=== PATIENT | female | born 1980 | race Caucasian/White ===

== ENCOUNTER 2018-09-29 22:58 | Inpatient (IN) ==
[2018-09-29] MEDS ORDERED: LACTATED RINGER'S 1,000 ML IV PRN (23:15)
[2018-09-29] MEDS ORDERED: OXYTOCIN 30 UNITS/500 ML BAG IV PRN (23:15)
--- NOTE | 2018-09-29 23:21 | History & Physical Report ---
Date of Service September 29, 2018 Assessment & Plan (1) Uterine contractions at greater than 20 weeks of gestation: 38 yo at 40.2 wks presenting in active labor VSS Afebrile GBS negative FHR reassuring Plan admit monitor epidural for pain, anticipate History of Present Illness Chief Complaint: Contractions Primary Care Provider: NO PCP Patient is a 38 yo at 40.2 wks with EDC of 3/10 per1St trimester US She started tohave ctxs at 2030 and became regular and painful Every 2min No LOF/VB +FM Her has been uncomplicated She is transfer of care from [facility] Per her no problems noted GBS negative Allergies Allergy/AdvReac Type Severity Reaction Status Date / Time No Known Allergies Allergy Verified 09/29/18 23:17 Home Medications Home Medications Medication Instructions Recorded Confirmed Type [id number] fumarate-FA 1 tab PO DAILY 09/01/18 09/01/18 History [] Patient History Medical History No known health problems Social History Preferred Language: Uzbek Beliefs That Will Affect Care: None marital status: Current Living Situation: Family Feels Safe at Home: Yes Smoking Status: Never smoker Hx Alcohol Use: No Hx Substance Use: No OB History at 36 weeks Review of Systems All systems reviewed & are unremarkable except as noted in HPI & below Physical Exam Vital Signs (Past 24 Hours): Last Vital Signs Pulse 90 09/29/18 23:08 BP 138/74 09/29/18 23:08 Constitutional: + acute distress (uncomfortable with ctxs, desires epidural for pain) Genitourinary: Manual OB Exam: + cervical dilation 5 cm, + cervical effacement 90% and + station (bulging bag) -2 OB Exam Monitor Tracing: + category I
[2018-09-29] MEDS: LACTATED RINGER'S 1,000 ML IV SCH (23:25)
[2018-09-29 23:43] LABS: Hematocrit (blood only) 34.9 % (37-47); Hemoglobin 11.7 g/dL (12.0-16.0); Mean Corpuscular Volume 79.3 fL (80-100); Platelet Count 195 K/uL (130-400); RDW Coefficient of Variation 20.2 % (11.5-14.5); RDW Standard Deviation 58.2 fL (36.4-46.3); White Blood Count 10.99 K/uL (4.8-10.8)
[2018-09-29] MEDS ORDERED: ePHEDrine sulfate 50 MG/ML AMP ONE (23:46)
[2018-09-29] MEDS ORDERED: BUPIVACAINE 0.25% 30 ML VIAL ONE (23:46)
[2018-09-29] MEDS ORDERED: fentaNYL citrate 100 MCG/2 ML VIAL ONE (23:47)
[2018-09-29] MEDS ORDERED: fentaNYL 2MCG/ML ROPIV 1.25MG/ML 100 ML BAG EPI ONE (23:47)
[2018-09-30 00:01] LABS: Mean Corpuscular Hgb Conc 33.5 g/dL (32-36)
--- NOTE | 2018-09-30 00:02 | Anesthesiology Consultation ---
Date of Service September 30, 2018 Assessment & Plan (1) Encounter for pre-operative examination: Chart Review Chart Review: Acceptable Risk for Labor Epidural Consults Requested none ASA ASA2 Proposed Anesthesia Anesthesia Type: Labor Epidural Risk / Benefits Reviewed With: PT / POA / Parent / Guardian, Accepts Plan and Informed Consent Obtained History Height/Weight Height: 5 ft 2 in Weight: 70.307 kg Allergies Allergy/AdvReac Type Severity Reaction Status Date / Time No Known Allergies Allergy Verified 09/29/18 23:17 Medications Home Medications Medication Instructions Recorded Confirmed Last Taken [id number] fumarate-FA 1 tab PO DAILY 09/01/18 09/29/18 09/29/18 08:00 [] Past Medical History Medical History No known health problems Past Anesthesia History No Hx of Anesthesia Complications and No Family Hx of Anesthesia Complications History of PONV No Motion Sickness Screening History of Motion Sickness: No Social History Smoking Status: Never smoker Hx Alcohol Use: No Hx Substance Use: No substance use type: does not use Exercise / Class Metabolic Activity II 4-5 Yardwork/Stairs/Walk up hill Physical Exam Vital Signs Last Vital Signs Temp 98.4 F 09/29/18 23:20 Pulse 87 09/29/18 23:57 Resp 20 09/29/18 23:20 BP 138/74 09/29/18 23:20 Pulse Ox 100 09/29/18 23:57 ENMT Mouth: no dentition abnormality Thyromental Distance: > or= 3.5 Finger Breadths Mallampati Class: II Neck normal visual inspection Respiratory normal respiratory effort Auscultation: lungs clear to auscultation bilaterally Cardiovascular Rate/Rhythm: regular rate and regular rhythm Testing Laboratory Results 09/29/18 23:22
[2018-09-30] MEDS ORDERED: NALOXONE HCL 0.4 MG/1 ML VIAL/CARP IV PRN (00:23)
[2018-09-30] MEDS ORDERED: ONDANSETRON INJ 2 MG/ML 2 ML VIAL IV PRN (00:23)
[2018-09-30] MEDS ORDERED: NALBUPHINE HCL INJ 10 MG/ML AMP IV PRN (00:23)
[2018-09-30] MEDS ORDERED: LACTATED RINGER'S 1,000 ML IV PRN ×2 (00:23→04:37)
[2018-09-30] MEDS ORDERED: DiphenhydrAMINE HCL 50 MG/ML VIAL IV PRN (00:23)
[2018-09-30] MEDS ORDERED: NALOXONE HCL 1 MG in SODIUM CHLORIDE 0.9% 1000ML 1,000 ML IV PRN (00:23)
[2018-09-30] MEDS ORDERED: fentaNYL 2MCG/ML ROPIV 1.25MG/ML 100 ML BAG EPI PRN (00:23)
[2018-09-30] MEDS ORDERED: ePHEDrine sulfate 50 MG/ML AMP IV PRN (00:23)
[2018-09-30] MEDS: LACTATED RINGER'S 1,000 ML IV SCH ×2 (01:30→07:38)
[2018-09-30] MEDS ORDERED: OXYTOCIN 30 UNITS/500 ML BAG IV PRN ×2 (04:37→07:29)
[2018-09-30] MEDS ORDERED: CEFAZOLIN 2000MG 2,000 MG/15 ML SYR IV STA (06:57)
[2018-09-30] MEDS ORDERED: miSOPROStol 200 MCG TAB ONE (07:05)
[2018-09-30] MEDS ORDERED: METHYLERGONOVINE MALEATE 0.2 MG/ML AMP ONE (07:06)
[2018-09-30] MEDS ORDERED: DIPHTHERIA/TETANUS/PERTUSSIS 0.5 ML SYR/VIAL IM ONE (07:29)
[2018-09-30] MEDS ORDERED: METHYLERGONOVINE MALEATE 0.2 MG/ML AMP IM ONE (07:29)
[2018-09-30] MEDS ORDERED: HYDROCORTISONE ACETATE 25 MG SUPP PR PRN (07:29)
[2018-09-30] MEDS ORDERED: BISACODYL 10 MG SUPP PR PRN (07:29)
[2018-09-30] MEDS ORDERED: SUPERCREAM 0.870% 15 GM JAR EXT PRN (07:29)
[2018-09-30] MEDS ORDERED: miSOPROStol 200 MCG TAB PR ONE (07:29)
[2018-09-30] MEDS ORDERED: BENZOCAINE 20% AER SPR 82.5 GM CAN EXT PRN (07:29)
[2018-09-30] MEDS ORDERED: ACETAMINOPHEN 325 MG TAB PO PRN (07:29)
[2018-09-30] MEDS: FERROUS SULFATE 325 MG TAB PO SCH (08:43)
[2018-09-30] MEDS: PRENATAL VITAMIN 1 TAB PO SCH (08:43)
[2018-09-30] MEDS: DOCUSATE SODIUM 100 MG CAP PO SCH ×2 (08:43→20:10)
--- NOTE | 2018-09-30 09:44 | Anesthesia Procedure Note ---
Date of Service September 30, 2018 Anesthesia Post Epidural Note Vital Signs Vital Signs: Temp Pulse Resp BP Pulse Ox 37.0 C 99 H 20 112/61 98 09/30/18 05:05 09/30/18 09:39 09/30/18 07:44 09/30/18 09:39 09/30/18 06:52 Notes Mental Status: alert / awake / arousable Patient Amnestic to Procedure: Yes Nausea / Vomiting: adequately controlled Pain: adequately controlled Airway Patency, RR, SpO2: stable & adequate BP & HR: stable & adequate Hydration State: stable & adequate Neuraxial Anesthesia: was administered and sensory block is resolving Anesthetic Complications: no major complications apparent and Pt Satisfied with anesthetic care Epidural: Removed without complications and See Notes
[2018-09-30] MEDS: IBUPROFEN 600 MG TAB PO PRN ×3 (10:46→21:20)
--- NOTE | 2018-09-30 10:58 | Delivery Summary ---
DATE OF OPERATION: 09/30/2018 TIME: 0640 DETAILS OF PROCEDURE: The patient was fully dilated head at +2 station and desired to push. She pushed for about 40 minutes and delivered the head without difficulty. Shoulders were delivered with minimal traction. Baby was handed off to the mother, where mouth and nose were suctioned. Cord was clamped x2 and cut at 1 minute delay and it was 3 vessels cord. Cord blood was obtained. Then vagina and perineum were checked for lacerations and there was a small perineal laceration at the posterior fourchette, but it was extended into 3rd degree most likely due to short perineal distance. It was confirmed with rectal exam and then the external sphincter muscles were held with Allis clamps brought to the midline. Those were repaired with [id number] stitches x2 and a rectal exam was repeated. Good sphincter tone was noted and no sutures were felt. Gloves were changed and the rest of the vagina mucosa, perineal body muscles were repaired with 0 Vicryl and 2-0 Vicryl in a running fashion. Skin in a subcuticular fashion. The placenta was found to be in the vagina, delivered spontaneous as intact and complete. Uterus was explored, found to be empty. Fundus was firm. EBL was 400 ml. The vagina was checked for lacerations. There was a first-degree vaginal laceration on the right lower vagina, which was repaired with [id number] stitch x1. Excellent hemostasis was achieved. Mom and baby tolerated the procedure well. Sponge, lap, needle count were correct x2. Baby was a viable female , Apgars 8/9. No complications happened. I was present during whole procedure. I attest to the content of the Intraoperative Record and any orders documented therein. Any exceptions are noted below. JESENIAD
[2018-10-01 07:17] LABS: Basophils # (auto) 0.01 K/uL (0-0.2); Basophils % (auto) 0.1 %; Eosinophils # (auto) 0.06 K/uL (0-0.5); Eosinophils % (auto) 0.6 %; Hematocrit (blood only) 29.9 % (37-47); Hemoglobin 10.1 g/dL (12.0-16.0); Immature Granulocytes # (auto) 0.06 K/uL (0.00-0.02); Immature Granulocytes % (auto) 0.6 %; Lymphocytes # (auto) 2.34 K/uL (1.2-3.4); Lymphocytes % (auto) 24.5 %; Mean Corpuscular Hgb Conc 33.8 g/dL (32-36); Mean Corpuscular Volume 80.4 fL (80-100); Mean Platelet Volume 10.7 fL (7.4-10.4); Monocytes # (auto) 0.53 K/uL (0.11-0.59); Monocytes % (auto) 5.6 %; Neutrophils # (auto) 6.54 K/uL (1.4-6.5); Neutrophils % (auto) 68.6 %; Platelet Count 143 K/uL (130-400); RDW Coefficient of Variation 20.5 % (11.5-14.5); RDW Standard Deviation 59.2 fL (36.4-46.3); Red Blood Count 3.72 M/uL (4.2-5.4); White Blood Count 9.54 K/uL (4.8-10.8)
[2018-10-01 07:45] LABS: Anisocytosis Present
[2018-10-01] MEDS: IBUPROFEN 600 MG TAB PO PRN ×2 (08:25→21:17)
[2018-10-01] MEDS: PRENATAL VITAMIN 1 TAB PO SCH (08:26)
[2018-10-01] MEDS: DOCUSATE SODIUM 100 MG CAP PO SCH ×2 (08:26→21:17)
[2018-10-01] MEDS: FERROUS SULFATE 325 MG TAB PO SCH (08:26)
--- NOTE | 2018-10-01 10:39 | Obstetrical Progress Note ---
Date of Service October 01, 2018 Subjective doing well ambulating and tolerating diet well passing gas Physical Exam Vital Signs (Past 24 Hours): Last Vital Signs Temp 36.6 C 10/01/18 09:02 Pulse 93 H 10/01/18 09:02 Resp 18 10/01/18 09:02 BP 117/78 10/01/18 09:02 Pulse Ox 97 10/01/18 09:02 Constitutional: WD/WN, vitals as above comfortable abdomen soft fundus firm no edema neg Jose Roberto's plan for discharge in AM Results & Data Laboratory Results 09/29/18 09/29/18 09/30/18 23:22 23:22 07:53 WBC 10.99 H RBC 4.40 Hgb 11.7 L Hct 34.9 L MCV 79.3 L MCH 26.6 MCHC 33.5 RDW Std Deviation 58.2 H RDW Coeff of [place] 20.2 H Plt Count 195 MPV 11.0 H Immature Gran % (Auto) Neut % (Auto) Lymph % (Auto) [place] % (Auto) Eos % (Auto) Baso % (Auto) Immature Gran # (Auto) Neut # (Auto) Lymph # (Auto) [place] # (Auto) Eos # (Auto) Baso # (Auto) Anisocytosis Hep Bs Antigen Neg Blood Type B Negative Antibody Screen NEGATIVE Screen 10/01/18 10/01/18 07:01 07:01 WBC 9.54 RBC 3.72 L Hgb 10.1 L Hct 29.9 L MCV 80.4 MCH 27.2 MCHC 33.8 RDW Std Deviation 59.2 H RDW Coeff of [place] 20.5 H Plt Count 143 MPV 10.7 H Immature Gran % (Auto) 0.6 Neut % (Auto) 68.6 Lymph % (Auto) 24.5 [place] % (Auto) 5.6 Eos % (Auto) 0.6 Baso % (Auto) 0.1 Immature Gran # (Auto) 0.06 H Neut # (Auto) 6.54 H Lymph # (Auto) 2.34 [place] # (Auto) 0.53 Eos # (Auto) 0.06 Baso # (Auto) 0.01 Anisocytosis Present Hep Bs Antigen Blood Type B Negative Antibody Screen Cancelled Screen Negative
[2018-10-01 15:38] LABS: Chlamydia Trach RNA NOT DETECTED (NOT DETECTED); GC (Neis gonorrhoeae) RNA NOT DETECTED (NOT DETECTED)
[2018-10-01] MEDS ORDERED: BISACODYL 5 MG TABEC PO SCH (20:00)
[2018-10-02 08:15] LABS: Hemoglobin 9.5 g/dL (12.0-16.0)
--- NOTE | 2018-10-02 08:50 | Obstetrical Progress Note ---
Date of Service October 02, 2018 Subjective Patient is seen and examined. She feels well, no complaints. Ambulating without dizziness Voiding without difficulty Tolerating regular diet with out N&V Bleeding is minimal No fever/ chills/ CP/ SOB/ N&V/ Leg pain Breast feeding without problems Vital Signs Temp Pulse Pulse Resp BP BP Pulse Ox 10/02/18 00:05 36.8 C 83 18 108/68 10/01/18 20:35 37.3 C 102 H 18 105/61 95 10/01/18 15:30 36.8 C 88 18 112/73 97 10/01/18 09:02 36.6 C 93 H 18 117/78 97 10/02/18 10/01/18 10/01/18 Range/Units 07:33 07:01 07:01 Hgb 9.5 L (12.0-16.0) g/dL Hct 29.0 L (37-47) % RPR Nonreactive (Nonreactive) C.trachomatis RNA (NOT DETECTED) N.gonorrhoeae RNA (NOT DETECTED) Blood Type B Negative Antibody Screen Cancelled Screen Negative (Negative) 09/30/18 Range/Units 10:30 Hgb (12.0-16.0) g/dL Hct (37-47) % RPR (Nonreactive) C.trachomatis RNA NOT DETECTED (NOT DETECTED) N.gonorrhoeae RNA NOT DETECTED (NOT DETECTED) Blood Type Antibody Screen Screen (Negative) PE: General: Alert, orientedx3, NAD Abd: soft, NT, fundus firm, below Umbilicus Perineum intact, Lochia rubra minimal Ext; NT, no edema AP: 38 yo s/p , ppd# 2 VSS Afebrile doing well Continue routine care All questions were answered Instructions were given when to call D/C home Physical Exam Vital Signs (Past 24 Hours): Last Vital Signs Temp 36.8 C 10/02/18 00:05 Pulse 83 10/02/18 00:05 Resp 18 10/02/18 00:05 BP 108/68 10/02/18 00:05 Pulse Ox 95 10/01/18 20:35
[2018-10-02] MEDS: PRENATAL VITAMIN 1 TAB PO SCH (09:11)
[2018-10-02] MEDS: DOCUSATE SODIUM 100 MG CAP PO SCH (09:11)
[2018-10-02] MEDS: FERROUS SULFATE 325 MG TAB PO SCH (09:11)
== END 2018-10-02 13:55 | disposition home or self-care (01) | DRG 768 ==
LOC: OPB 22:58 → 4S1 22:59 → 4S2 09-30 16:48